=== PATIENT | female | born 1995 | race African-American/Black ===

== ENCOUNTER 2022-02-09 08:14 | Emergency (ER) | payer MEDICAID ==
[~2022-02-09] VITALS: Ht 154.9 cm; Wt 54.4 kg
--- NOTE | 2022-02-09 08:21 | NUR ---
Patient ambulated to ED bed 9.
[2022-02-09 08:27] VITALS: BP 114/65
--- NOTE | 2022-02-09 08:28 | NUR ---
PT C/O ANXIETY AND PANIC ATTACKS SINCE LAST NIGHT. PT REPORTS INCREASED STRESS WITH MOTHER. HAS HX OF ANXIETY TAKES ATIVAN BUT MOTHER TOOK MEDICATION AND PT DOES NOT HAVE ACCESS TO IT.
[2022-02-09] MEDS ORDERED: LORazepam 1 MG TAB PO ONE (08:35)
--- NOTE | 2022-02-09 09:15 | NUR ---
PT MOVED TO ER BED 5 FOR PSYCH EVAL.
--- NOTE | 2022-02-09 09:29 | NUR ---
Lab at bedside.
--- NOTE | 2022-02-09 09:30 | NUR ---
ALYSSIA and PCR swabs obtained, handed to CPT at bedside.
[2022-02-09 10:11] LABS: BASOPHILS % (AUTO) 0.3 % (0.0-2.0); EOSINOPHILS % (AUTO) 0.2 % (0.0-4.0); HEMATOCRIT 40.1 % (36-48); HEMOGLOBIN 13.9 g/dL (12.0-16.0); LYMPHOCYTES # (AUTO) 1.2 K/uL (2.5-16.5); LYMPHOCYTES % (AUTO) 15.8 % (20.5-51.1); MEAN CORPUSCULAR HEMOGLOBIN 35 pg (27-31); MEAN CORPUSCULAR HGB CONC 35 g/dL (33-37); MEAN CORPUSCULAR VOLUME 100.4 fL (80-94); MONOCYTES # (AUTO) 0.4 K/uL (0.8-1.0); MONOCYTES % (AUTO) 5.6 % (1.7-9.3); NEUTROPHILS # (AUTO) 5.9 K/uL (1.8-7.7); NEUTROPHILS % (AUTO) 78.1 % (42.2-75.2); PLATELET COUNT (AUTO) 261 K/uL (140-450); RED BLOOD CELL COUNT(AUTO) 3.99 MIL/uL (4.20-5.40); WHITE BLOOD COUNT (AUTO) 7.5 K/uL (4.8-10.8)
--- NOTE | 2022-02-09 10:19 | NUR ---
Patient being Tele-Psych by Dr. Chaparro, psychiatrist.
--- NOTE | 2022-02-09 10:27 | NUR ---
Per Dr. Chaparro, obtain a 5150 hold and transfer to a [facility].
--- NOTE | 2022-02-09 10:31 | NUR ---
Called [employer] to request an officer to write a 6740 hold, states they will come out soon.
[2022-02-09 10:42] LABS: BARBITURATE, URINE NEGATIVE ng/ml (NEG <=200); BENZODIAZEPINE, URINE NEGATIVE ng/mL (NEG <=200); CANNABINOID, URINE POSITIVE ng/mL (NEG <=50); COCAINE, URINE NEGATIVE ng/mL (NEG <=300); OPIATE, URINE NEGATIVE ng/mL (NEG <=2000); PHENCYCLIDINE SCREEN,URINE NEGATIVE ng/mL (NEG <=25)
[2022-02-09 10:44] LABS: ACETAMINOPHEN < 0.5 ug/ml (10-30); ALBUMIN 4.1 g/dL (3.4-5.0); ANION GAP 15.6 (8-16); ASPARTATE AMINOTRANSFERASE 15 U/L (15-37); CARBON DIOXIDE 26.1 mmol/L (21-32); CHLORIDE 104 mmol/L (98-107); CREATININE 0.8 mg/dL (0.6-1.3); GFR ARICAN-AMERICAN 110 mL/min (>90); GLUCOSE 96 mg/dL (74-106); POTASSIUM 3.7 mmol/L (3.5-5.1); SALICYLATE < 2.8 mg/dL (2.8-20.0); SODIUM SERUM 142 mmol/L (136-145); UREA NITROGEN, BLOOD 7 mg/dL (7-18)
--- NOTE | 2022-02-09 11:03 | NUR ---
Shikha DE LA CRUZ at bedside.
--- NOTE | 2022-02-09 13:40 | NUR ---
Patient was offered breakfast tray, patient declined. Tray left at bedside.
--- NOTE | 2022-02-09 15:25 | NUR ---
Patient is laying in bed, respirations even and unlabored. All needs met by staff.
--- NOTE | 2022-02-09 16:24 | NUR ---
ATTEMPTED TO CONTACT PTS MOTHER OSBALDO PER PTS REQUEST [phone]. LEFT MESSAGE.
--- NOTE | 2022-02-09 17:15 | NUR ---
Patient was offered juice and snacks.
--- NOTE | 2022-02-09 18:38 | NUR ---
Patient was offered dinner tray. Patient does not want to eat right now. Tray left at bedside.
--- NOTE | 2022-02-09 19:11 | NUR ---
Report given to HELENE Gross for transfer of care.
--- NOTE | 2022-02-09 19:41 | NUR ---
Patient is laying in bed, respirations even and unlabored. Patient verbalized SI with plan to "jump off bridge." PAtient is on to , close observation. All needs met by staff. Addendum: 02/09/22 at 1943 by [id number] Patient is laying in bed, respirations even and unlabored. Patient verbalized SI with plan to "jump off bridge." Patient is on to , close observation. All needs met by staff. Belongings removed and labeled, not at bedside, safely stored away and accounted for.
--- NOTE | 2022-02-09 20:19 | NUR ---
[facility] AT BEDSIDE FOR TRANSFER
--- NOTE | 2022-02-09 20:33 | NUR ---
Patient to be transferred to [facility]. Is being transferred due to Higher Level of Care. Receiving facility has accepting physician and available space. ER physician has signed transfer form. Patient or responsible republican has agreed to transfer and signed form. Patient belongings inventoried and will be sent with patient. Copy of nursing notes, belongings, lab reports, EKG, Physicians Orders and X-rays to be sent with patient. Report called to Fabián NARAYAN at receiving facility. [facility] ambulance service has arrived and was also given report.
[2022-02-09 20:37] VITALS: BP 113/70
== END 2022-02-09 20:32 ==
LOC: MED 08:14
DX: R45.851 Suicidal ideations (principal); Z20.822 Contact with and (suspected) exposure to COVID-19; F41.0 Panic disorder [episodic paroxysmal anxiety]
CPT/HCPCS: 36415; 80053; 80305; 81002; 81025; 85025; 87426; 87635; 99285; C9803; G0480; G0482